=== PATIENT | male | born 2000 | race Caucasian/White ===

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

== ENCOUNTER 2019-02-05 13:44 | Emergency (ER) | payer MEDICAID ==
[~2019-02-05] VITALS: Ht 167.6 cm; Wt 49.9 kg
[2019-02-05 14:05] VITALS: BP 112/58
--- NOTE | 2019-02-05 14:08 | NUR ---
PT AMBULATED TO ED SHAUNNA
--- NOTE | 2019-02-05 14:45 | NUR ---
ASSESSMENT COMPLETED. PATIENT SITTING UP IN CHAIR, NO DITRESS.
--- NOTE | 2019-02-05 14:48 | NUR ---
PA AT BEDSIDE.
[2019-02-05] MEDS ORDERED: ACETAMINOPHEN EXTRA STRENGTH 500 MG TAB PO ONE (15:10)
[2019-02-05 15:24] VITALS: BP 112/58
== END 2019-02-05 15:25 | disposition home or self-care (01) ==
LOC: MED 13:44
DX: S90.122A Contusion of left lesser toe(s) without damage to nail, initial encounter (principal); J45.909 Unspecified asthma, uncomplicated; Z79.899 Other long term (current) drug therapy; Z88.1 Allergy status to other antibiotic agents; W22.8XXA Striking against or struck by other objects, initial encounter; Y93.89 Activity, other specified; Y92.89 Other specified places as the place of occurrence of the external cause; Y99.8 Other external cause status
CPT/HCPCS: 73660; 99283

== ENCOUNTER 2019-08-05 16:07 | Emergency (ER) | payer MEDICAID ==
[~2019-08-05] VITALS: Ht 165.1 cm; Wt 54.4 kg
[2019-08-05 16:19] VITALS: BP 123/63
[2019-08-05] MEDS ORDERED: NACL 0.9% 1,000 ML IV SCH (16:29)
[2019-08-05] MEDS ORDERED: FAMOTIDINE 20 MG/2 ML VIAL IVP ONE (16:30)
[2019-08-05] MEDS ORDERED: MORPHINE SULFATE 2 MG/ML SYR IVP ONE (16:30)
[2019-08-05] MEDS ORDERED: ONDANSETRON 4 MG/2 ML VIAL IVP ONE (16:30)
[2019-08-05 17:04] LABS: BASOPHILS # (AUTO) 0.1 K/uL (0.00-0.22); BASOPHILS % (AUTO) 0.6 % (0.0-2.0); EOSINOPHILS % (AUTO) 0.1 % (0.0-4.0); HEMATOCRIT 47.4 % (36-52); HEMOGLOBIN 15.7 g/dL (12.0-18.0); LYMPHOCYTES # (AUTO) 0.9 K/uL (2.0-11.5); LYMPHOCYTES % (AUTO) 8.3 % (20.5-51.1); MEAN CORPUSCULAR HEMOGLOBIN 30 pg (27-31); MEAN CORPUSCULAR HGB CONC 33 g/dL (33-37); MEAN CORPUSCULAR VOLUME 91.5 fL (80-94); MONOCYTES # (AUTO) 0.6 K/uL (0.8-1.0); MONOCYTES % (AUTO) 5.4 % (1.7-9.3); NEUTROPHILS # (AUTO) 9.8 K/uL (1.8-7.7); NEUTROPHILS % (AUTO) 85.6 % (42.2-75.2); PLATELET COUNT (AUTO) 344 K/uL (140-450); RED BLOOD CELL COUNT(AUTO) 5.18 MIL/uL (4.20-6.10); RED CELL DISTRIBUTION WIDTH 13.5 % (11.6-13.7); WHITE BLOOD COUNT (AUTO) 11.5 K/uL (4.5-11.0)
[2019-08-05 17:19] LABS: ALBUMIN 5.2 g/dL (3.4-5.0); ANION GAP 16.3 (8-16); CARBON DIOXIDE 27.3 mmol/L (21-32); CREATININE 0.9 mg/dL (0.6-1.3); POTASSIUM 3.6 mmol/L (3.5-5.1); TOTAL BILIRUBIN 1.9 mg/dL (0.0-1.0)
[2019-08-05 17:54] LABS: APPEARANCE,URINE CLEAR (CLEAR); BILIRUBIN,URINE 1+ (NEGATIVE); BLOOD, URINE NEGATIVE (NEGATIVE); LEUKOCYTE ESTERASE ,URINE NEGATIVE (NEGATIVE); NITRITE, URINE NEGATIVE (NEGATIVE); UGLUCOSE NEGATIVE (NEGATIVE)
[2019-08-05 17:56] LABS: COLOR,URINE AMBER (YELLOW)
[2019-08-05] MEDS ORDERED: ALUMINUM HYD/MAG/SIMETHICONE 30 ML UDC PO ONE (18:05)
[2019-08-05] MEDS ORDERED: LIDOCAINE VISCOUS 2% 20 ML UDC PO ONE (18:05)
[2019-08-05 18:35] VITALS: BP 103/67
== END 2019-08-05 18:35 | disposition home or self-care (01) ==
LOC: MED 16:07
DX: R10.32 Left lower quadrant pain (principal); R10.12 Left upper quadrant pain; R19.7 Diarrhea, unspecified; J45.909 Unspecified asthma, uncomplicated; F12.90 Cannabis use, unspecified, uncomplicated; Z79.899 Other long term (current) drug therapy; Z88.1 Allergy status to other antibiotic agents
CPT/HCPCS: 36415; 74176; 80053; 81003; 83605; 83690; 85025; 87040; 96361; 96374; 96375; 99284; J2270; J2405; J3490; J7030

== ENCOUNTER 2020-01-19 10:59 | Emergency (ER) | payer MEDICAID ==
[~2020-01-19] VITALS: Ht 165.1 cm; Wt 52.2 kg
[2020-01-19 11:12] VITALS: BP 104/63
--- NOTE | 2020-01-19 11:45 | NUR ---
PT PROVIDED URINE SAMPLE AT THIS TIME. SPECIMEN IN DIRTY UTILITY.
--- NOTE | 2020-01-19 12:35 | NUR ---
PATIENT AMBULATED TO BED 1.
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
[2020-01-19 14:37] VITALS: BP 104/63
--- NOTE | 2020-01-19 14:38 | NUR ---
Patient discharged with v/s stable. Written and verbal after care instructions given and explained. Patient verbalized understanding. Ambulatory with steady gait. All questions addressed prior to discharge. Advised to follow up with PMD.
== END 2020-01-19 14:38 | disposition home or self-care (01) ==
LOC: MED 10:59
DX: K29.70 Gastritis, unspecified, without bleeding (principal); J45.909 Unspecified asthma, uncomplicated; Z88.1 Allergy status to other antibiotic agents; Z79.899 Other long term (current) drug therapy
CPT/HCPCS: 74021; 99283

== ENCOUNTER 2020-01-21 10:55 | Emergency (ER) | payer MEDICAID ==
[~2020-01-21] VITALS: Ht 165.1 cm; Wt 52.2 kg
[2020-01-21 11:03] VITALS: BP 118/69
--- NOTE | 2020-01-21 11:09 | NUR ---
19 y/o male from home c/o LUQ abd pain with N/V/D x 9 months. Pt states he saw GI specialist in past and was informed to change diet. Abd soft, flat, nontender to palp. Pt guarding abd at this time. 10/10 constant sharp pain. Pt states he vomits after eating. Awake and alert. VSS medhx: denies
--- NOTE | 2020-01-21 12:12 | NUR ---
Dr Arias in tent examining patient
[2020-01-21] MEDS ORDERED: ALUMINUM HYD/MAG/SIMETHICONE 30 ML UDC ONE (12:18)
[2020-01-21] MEDS ORDERED: LIDOCAINE VISCOUS 2% 20 ML UDC ONE (12:18)
[2020-01-21] MEDS ORDERED: DICYCLOMINE HCL LIQUID 10 MG/5 ML UDC ONE (12:18)
[2020-01-21] MEDS ORDERED: DICYCLOMINE HCL LIQUID 20 MG, ALUMINUM HYD/MAG/SIMETHICONE 30 ML, LIDOCAINE VISCOUS 2% ... PO ONE ×3 (12:20)
[2020-01-21 13:10] LABS: ANION GAP 10.7 (8-16); CARBON DIOXIDE 29.6 mmol/L (21-32); CREATININE 0.7 mg/dL (0.6-1.3); POTASSIUM 4.3 mmol/L (3.5-5.1)
[2020-01-21 13:22] LABS: ALBUMIN 4.9 g/dL (3.4-5.0); TOTAL BILIRUBIN 1.2 mg/dL (0.0-1.0)
[2020-01-21 13:47] VITALS: BP 120/74
--- NOTE | 2020-01-21 13:47 | NUR ---
Patient discharged with v/s stable. Written and verbal after care instructions given and explained. Patient alert, oriented and verbalized understanding of instructions. Ambulatory with steady gait. All questions addressed prior to discharge. ID band removed. Patient advised to follow up with PMD. Rx of Mylanta 200mg and Omeprazole 20mg given. Patient educated on indication of medication including possible reaction and side effects. Opportunity to ask questions provided and answered.
== END 2020-01-21 13:47 | disposition home or self-care (01) ==
LOC: MED 10:55
DX: R10.12 Left upper quadrant pain (principal); J45.909 Unspecified asthma, uncomplicated; Z88.0 Allergy status to penicillin; Z79.899 Other long term (current) drug therapy
CPT/HCPCS: 36415; 80053; 83690; 99283

== ENCOUNTER 2020-01-23 17:13 | Emergency (ER) | payer MEDICAID ==
[~2020-01-23] VITALS: Ht 162.6 cm; Wt 48.5 kg
[2020-01-23 17:22] VITALS: BP 129/100
[2020-01-23] MEDS ORDERED: ALUMINUM HYD/MAG/SIMETHICONE 30 ML, DICYCLOMINE HCL LIQUID 20 MG, LIDOCAINE VISCOUS 2% ... PO ONE ×3 (17:30)
[2020-01-23] MEDS ORDERED: KETOROLAC 30 MG/ML VIAL IVP ONE (17:30)
[2020-01-23] MEDS ORDERED: LIDOCAINE VISCOUS 2% 20 ML UDC ONE (17:33)
[2020-01-23] MEDS ORDERED: ALUMINUM HYD/MAG/SIMETHICONE 30 ML UDC ONE (17:33)
[2020-01-23] MEDS ORDERED: DICYCLOMINE HCL LIQUID 10 MG/5 ML UDC ONE (17:33)
--- NOTE | 2020-01-23 17:33 | NUR ---
PATIENT AMBULATED TO ER BED 04
[2020-01-23] MEDS ORDERED: ONDANSETRON 4 MG/2 ML VIAL IVP ONE (17:40)
--- NOTE | 2020-01-23 17:40 | NUR ---
19 YO M BIB MOTHER WITH C/C LEFT UPPER QUADRANT ABDOMINAL PAIN WITH ASSOCIATED NAUSEA AND VOMITING. PT STATES SUDDEN ONSET OF ABDOMINAL PAIN BEGAN THIS MORNING AFTER WAKING UP 12/5 AT 0700. PT DESCRIBES ABDOMINAL PAIN A SHARP, BURNING CONSTANT PAIN, NON-RADIATING AND PROVOKED BY WAKING UP. PT STATES ABDOMINAL PAIN IS CHRONIC IN NATURE SINCE April,. PT SEEN GI SPECIALIST AND EGD COMPLETED. GI SPECIALIST ADVISED PT TO CHANGE DIET. PT STATES ABDOMINAL PAIN WILL COME AT RANDOM INTERVALS. BED LOCKED AT LOWEST POSITION. SIDE RAILS X1. CALL LIGHT IN REACH. HX: ASTHMA MEDS: UNKNOWN ALLERGIES: AMOXICILLIN
--- NOTE | 2020-01-23 17:54 | NUR ---
RAD/CT AT BEDSIDE. PT ASSISTED FROM BED TO WHEELCHAIR WITHOUT ISSUE. PT ASSISTED TO RAD.
[2020-01-23 17:57] LABS: BASOPHILS # (AUTO) 0.1 K/uL (0.00-0.22); BASOPHILS % (AUTO) 1.1 % (0.0-2.0); EOSINOPHILS % (AUTO) 0.1 % (0.0-4.0); HEMATOCRIT 41.6 % (36-52); HEMOGLOBIN 14.3 g/dL (12.0-18.0); LYMPHOCYTES # (AUTO) 1.4 K/uL (2.0-11.5); MEAN CORPUSCULAR HEMOGLOBIN 31 pg (27-31); MEAN CORPUSCULAR HGB CONC 35 g/dL (33-37); MEAN CORPUSCULAR VOLUME 89.6 fL (80-94); MONOCYTES # (AUTO) 0.5 K/uL (0.8-1.0); MONOCYTES % (AUTO) 5.9 % (1.7-9.3); NEUTROPHILS # (AUTO) 6.1 K/uL (1.8-7.7); NEUTROPHILS % (AUTO) 75.9 % (42.2-75.2); PLATELET COUNT (AUTO) 362 K/uL (140-450); RED BLOOD CELL COUNT(AUTO) 4.65 MIL/uL (4.20-6.10); RED CELL DISTRIBUTION WIDTH 13.2 % (11.6-13.7)
--- NOTE | 2020-01-23 18:05 | NUR ---
PT RETURNED FROM [facility] FROM WHEELCHAIR TO BEDSIDE. PT IN POSITION OF COMFORT, STATES 10/10 PAIN AND ASSOCIATED NAUSEA/VOMITING. PT PROVIDED WITH WATER REQUESTED.
[2020-01-23 18:07] LABS: ANION GAP 13.7 (8-16); CARBON DIOXIDE 27.5 mmol/L (21-32); CREATININE 0.9 mg/dL (0.6-1.3); POTASSIUM 3.2 mmol/L (3.5-5.1)
--- NOTE | 2020-01-23 18:12 | NUR ---
Note undone in EDM - 01/23/20 at 1830 by ANTOLIN 19 YO M BIB MOTHER WITH C/C LEFT UPPER QUADRANT ABDOMINAL PAIN WITH ASSOCIATED NAUSEA AND VOMITING. PT STATES SUDDEN ONSET OF ABDOMINAL PAIN BEGAN THIS MORNING AFTER WAKING UP 12/5 AT 0700. PT DESCRIBES ABDOMINAL PAIN A SHARP, BURNING CONSTANT PAIN, NON-RADIATING AND PROVOKED BY WAKING UP. PT STATES ABDOMINAL PAIN IS CHRONIC IN NATURE SINCE April,. PT SEEN GI SPECIALIST AND EGD COMPLETED. GI SPECIALIST ADVISED PT TO CHANGE DIET. PT STATES ABDOMINAL PAIN WILL COME AT RANDOM INTERVALS. BED LOCKED AT LOWEST POSITION. SIDE RAILS X1. CALL LIGHT IN REACH. HX: ASTHMA MEDS: UNKNOWN ALLERGIES: AMOXICILLIN
[2020-01-23 18:21] LABS: ALBUMIN 5.4 g/dL (3.4-5.0); TOTAL BILIRUBIN 0.9 mg/dL (0.0-1.0)
[2020-01-23] MEDS ORDERED: MORPHINE SULFATE 4 MG/ML SYR IVP ONE (18:30)
--- NOTE | 2020-01-23 18:35 | NUR ---
PT NOTIFIED MOTHER OF DISCHARGE. PT STATES MOTHER IS EN ROUTE TO ER MAIN LOBBY TO DRIVE PT HOME.
--- NOTE | 2020-01-23 18:48 | NUR ---
Patient discharged with v/s stable. Written and verbal after care instructions given and explained. Patient alert, oriented and verbalized understanding of instructions. Wheel Chair Assisted with to car. All questions addressed prior to discharge. ID band removed. Patient advised to follow up with PMD. Rx of Brandi Lemus given. Patient educated on indication of medication including possible reaction and side effects. Opportunity to ask questions provided and answered.
[2020-01-23 18:50] VITALS: BP 122/75
== END 2020-01-23 18:48 | disposition home or self-care (01) ==
LOC: MED 17:13
DX: R10.12 Left upper quadrant pain (principal); R11.2 Nausea with vomiting, unspecified; J45.909 Unspecified asthma, uncomplicated; Z88.1 Allergy status to other antibiotic agents; Z79.899 Other long term (current) drug therapy
CPT/HCPCS: 36415; 74176; 80053; 83690; 85025; 96374; 96375; 99284; J1885; J2270; J2405

== ENCOUNTER 2020-04-03 10:38 | Emergency (ER) | payer MEDICAID ==
[~2020-04-03] VITALS: Ht 157.5 cm; Wt 50.8 kg
[2020-04-03 10:41] VITALS: BP 126/83
--- NOTE | 2020-04-03 10:45 | NUR ---
AMBULATED TO BED 9
--- NOTE | 2020-04-03 11:03 | NUR ---
19 Y/O M C/O ABD PAIN THAT STARTED THIS MORNING. UPON PALPATION, TENDERNESS IN LLQ, LUQ, RLQ. BOWEL SOUNDS NORMOACTIVE IN ALL QUADRANTS X4. PT STATES PAIN IS 10/10 SHARP. TAKES RX AT HOME, LAST MED TOOK WAS NORCO FOR PAIN, NO RELIEF. PMH: ASTHMA. LAST BM WAS 04/03/20 AM, PT REPORTS HAVING DIARRHEA Q AM SINCE LAST YEAR. ALLERGY TO AMOXICILLIN. PT DENIES ANY DRINKING, BUT SMOKES MARIJUANA AT HOME. LAST TIME WAS 3 DAYS AGO AND REPORTS SMOKING EVERY 2-3 DAYS. PT STATES "I'VE THROWN UP LIKE 10 TIMES SINCE THIS MORNING." CURRENTLY FEELING NAUSEA AND VISIBLY DRY HEAVING. DENIES CONTACT WITH ANYONE COVID POSITIVE, DENIES SOB, COUGH, FEVER, AND CHEST PAIN.
[2020-04-03] MEDS ORDERED: NACL 0.9% 1,000 ML IV ONE (11:15)
[2020-04-03] MEDS ORDERED: HALOPERIDOL IM 5 MG/ML VIAL IVP ONE (11:15)
[2020-04-03 11:28] LABS: BASOPHILS % (AUTO) 0.2 % (0.0-2.0); EOSINOPHILS % (AUTO) 0.1 % (0.0-4.0); HEMATOCRIT 43.9 % (36-52); HEMOGLOBIN 14.8 g/dL (12.0-18.0); LYMPHOCYTES # (AUTO) 0.9 K/uL (2.0-11.5); MEAN CORPUSCULAR HEMOGLOBIN 31 pg (27-31); MEAN CORPUSCULAR HGB CONC 34 g/dL (33-37); MEAN CORPUSCULAR VOLUME 90.6 fL (80-94); MONOCYTES # (AUTO) 0.3 K/uL (0.8-1.0); MONOCYTES % (AUTO) 2.4 % (1.7-9.3); NEUTROPHILS # (AUTO) 10.7 K/uL (1.8-7.7); PLATELET COUNT (AUTO) 342 K/uL (140-450); RED BLOOD CELL COUNT(AUTO) 4.84 MIL/uL (4.20-6.10); RED CELL DISTRIBUTION WIDTH 13.4 % (11.6-13.7); WHITE BLOOD COUNT (AUTO) 11.9 K/uL (4.5-11.0)
--- NOTE | 2020-04-03 11:30 | NUR ---
PT MOTHER CALLED, ASKED PT IF I WAS ABLE TO RELEASE ANY INFORMATION, PT GAVE CONSENT. NOTIFIED MOTHER ABOUT CONDITION AND THAT WE ARE WAITING ON LABS AND MEDS WERE GIVEN FOR COMFORT.
[2020-04-03 11:46] LABS: ANION GAP 16.7 (8-16); CREATININE 0.9 mg/dL (0.6-1.3); POTASSIUM 3.7 mmol/L (3.5-5.1); TOTAL BILIRUBIN 1.3 mg/dL (0.0-1.0)
--- NOTE | 2020-04-03 12:10 | NUR ---
URINAL LEFT AT BEDSIDE, PT UNABLE TO GIVE URINE AT THIS TIME. PT IS STILL C.O PAIN.
[2020-04-03 12:18] LABS: LYMPHOCYTES % (AUTO) 7.2 % (20.5-51.1); NEUTROPHILS % (AUTO) 90.1 % (42.2-75.2)
[2020-04-03] MEDS ORDERED: LORazepam 2 MG/ML VIAL IVP ONE (12:25)
--- NOTE | 2020-04-03 12:38 | NUR ---
PT STATES "I WANT TO ", ASKED IF HE HAS ANY INTENTION OF HARMING SELF OR OTHERS, PT DENIES ANY SI.
--- NOTE | 2020-04-03 13:42 | NUR ---
MOTHER CALLED AGAIN, NOTIFIED THAT WE ARE WAITING FOR PT TO GIVE URINE FOR LABS. PT IS CURRENTLY SLEEPING. WILL CALL IF ANYTHING CHANGES.
--- NOTE | 2020-04-03 15:23 | NUR ---
VITALS UPDATED, PT STILL UNABLE TO GIVE URINE.
--- NOTE | 2020-04-03 16:28 | NUR ---
LET PT KNOW THAT MOTHER IS COMING TO PICK HIM UP AND TO PUT SHIRT BACK ON. PT FELL BACK TO SLEEP.
[2020-04-03 17:29] VITALS: BP 105/55
== END 2020-04-03 17:30 | disposition home or self-care (01) ==
LOC: MED 10:38
DX: G89.29 Other chronic pain (principal); R10.9 Unspecified abdominal pain; R19.7 Diarrhea, unspecified; J45.909 Unspecified asthma, uncomplicated; Z88.1 Allergy status to other antibiotic agents
CPT/HCPCS: 36415; 80053; 83690; 85025; 93005; 96361; 96374; 96375; 99284; J1630; J2060; J7030

== ENCOUNTER 2020-04-10 16:05 | Emergency (ER) | payer MEDICAID ==
[~2020-04-10] VITALS: Ht 165.1 cm; Wt 49.9 kg
[2020-04-10 16:10] VITALS: BP 131/75
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
[2020-04-10 16:38] LABS: BASOPHILS # (AUTO) 0.1 K/uL (0.00-0.22); BASOPHILS % (AUTO) 0.8 % (0.0-2.0); EOSINOPHILS % (AUTO) 0.2 % (0.0-4.0); HEMATOCRIT 42.7 % (36-52); HEMOGLOBIN 14.5 g/dL (12.0-18.0); LYMPHOCYTES # (AUTO) 1.4 K/uL (2.0-11.5); LYMPHOCYTES % (AUTO) 13.1 % (20.5-51.1); MEAN CORPUSCULAR HEMOGLOBIN 31 pg (27-31); MEAN CORPUSCULAR HGB CONC 34 g/dL (33-37); MEAN CORPUSCULAR VOLUME 90.9 fL (80-94); MONOCYTES # (AUTO) 0.8 K/uL (0.8-1.0); MONOCYTES % (AUTO) 7.4 % (1.7-9.3); NEUTROPHILS # (AUTO) 8.5 K/uL (1.8-7.7); NEUTROPHILS % (AUTO) 78.5 % (42.2-75.2); PLATELET COUNT (AUTO) 337 K/uL (140-450); RED CELL DISTRIBUTION WIDTH 13.5 % (11.6-13.7); WHITE BLOOD COUNT (AUTO) 10.8 K/uL (4.5-11.0)
[2020-04-10 16:59] LABS: PROTHROMBIN TIME 10.9 secs (10.8-13.4)
[2020-04-10 17:00] LABS: ALBUMIN 4.9 g/dL (3.4-5.0); ANION GAP 15.8 (8-16); CARBON DIOXIDE 24.9 mmol/L (21-32); CREATININE 0.9 mg/dL (0.6-1.3); POTASSIUM 3.7 mmol/L (3.5-5.1); TOTAL BILIRUBIN 0.8 mg/dL (0.0-1.0)
[2020-04-10] MEDS ORDERED: LORazepam 2 MG/ML VIAL IVP ONE (17:05)
[2020-04-10] MEDS ORDERED: NACL 0.9% 500 ML IV ONE (17:05)
[2020-04-10] MEDS ORDERED: methylPREDNISolone SS 125 MG/2 ML VIAL IVP ONE (17:20)
[2020-04-10 17:40] LABS: ACETAMINOPHEN < 0.5 ug/ml (10-30); SALICYLATE < 2.8 mg/dL (2.8-20.0)
[2020-04-10 17:41] LABS: FREE T4 (FREE THYROXINE) 1.26 ng/dL (0.76-1.46); THYROID STIMULATING HORMONE 0.53 uIU/mL (0.34-3.74)
--- NOTE | 2020-04-10 18:23 | NUR ---
C/O EYE PAIN X 30 MINS AGO , MOUTH PAIN, DIZZINESS X 10 MINS AGO. PMH: ASTHMA
[2020-04-10 18:45] VITALS: BP 131/75
--- NOTE | 2020-04-10 18:45 | NUR ---
Patient discharged with v/s stable. Written and verbal after care instructions given and explained. Patient alert, oriented and verbalized understanding of instructions. Ambulatory with steady gait. All questions addressed prior to discharge. ID band removed. Patient advised to follow up with PMD. Rx of prednisone 50mg daily, acyclovir 800mg 1 cap 5x/day PO given. Patient educated on indication of medication including possible reaction and side effects. Opportunity to ask questions provided and answered.
--- NOTE | 2020-04-11 22:50 | NUR ---
LATE ENTRY- Normal saline 0.9% IV fluids discontinued at 191
== END 2020-04-10 18:45 | disposition home or self-care (01) ==
LOC: MED 16:05
DX: G50.8 Other disorders of trigeminal nerve (principal); H53.9 Unspecified visual disturbance; R07.0 Pain in throat; J45.909 Unspecified asthma, uncomplicated; Z88.1 Allergy status to other antibiotic agents; F12.10 Cannabis abuse, uncomplicated; Z79.899 Other long term (current) drug therapy
CPT/HCPCS: 36415; 70450; 70486; 80053; 84439; 84443; 85025; 85610; 85730; 93005; 96361; 96374; 96375; 99285; G0480; G0482; J2060; J2930; J7030

== ENCOUNTER 2020-05-11 10:53 | Emergency (ER) | payer MEDICAID ==
[~2020-05-11] VITALS: Ht 165.1 cm; Wt 49.9 kg
[2020-05-11 10:55] VITALS: BP 132/82
[2020-05-11] MEDS ORDERED: MORPHINE SULFATE 4 MG/ML SYR IVP ONE ×2 (11:15→13:25)
[2020-05-11] MEDS ORDERED: ONDANSETRON 4 MG/2 ML VIAL IVP ONE (11:15)
[2020-05-11] MEDS ORDERED: NACL 0.9% 1,000 ML IV ONE (11:15)
[2020-05-11 11:28] LABS: BASOPHILS # (AUTO) 0.1 K/uL (0.00-0.22); BASOPHILS % (AUTO) 0.8 % (0.0-2.0); EOSINOPHILS % (AUTO) 0.2 % (0.0-4.0); HEMATOCRIT 41.3 % (36-52); LYMPHOCYTES # (AUTO) 0.7 K/uL (2.0-11.5); LYMPHOCYTES % (AUTO) 5.6 % (20.5-51.1); MEAN CORPUSCULAR HEMOGLOBIN 31 pg (27-31); MEAN CORPUSCULAR HGB CONC 34 g/dL (33-37); MEAN CORPUSCULAR VOLUME 92.1 fL (80-94); MONOCYTES # (AUTO) 0.3 K/uL (0.8-1.0); MONOCYTES % (AUTO) 2.5 % (1.7-9.3); NEUTROPHILS % (AUTO) 90.9 % (42.2-75.2); PLATELET COUNT (AUTO) 306 K/uL (140-450); RED BLOOD CELL COUNT(AUTO) 4.48 MIL/uL (4.20-6.10); RED CELL DISTRIBUTION WIDTH 13.5 % (11.6-13.7); WHITE BLOOD COUNT (AUTO) 12.1 K/uL (4.5-11.0)
[2020-05-11 11:41] LABS: ANION GAP 15.8 (8-16); CARBON DIOXIDE 26.9 mmol/L (21-32); CREATININE 0.8 mg/dL (0.6-1.3); POTASSIUM 3.7 mmol/L (3.5-5.1); TOTAL BILIRUBIN 0.5 mg/dL (0.0-1.0)
[2020-05-11 14:59] VITALS: BP 105/57
== END 2020-05-11 15:00 | disposition home or self-care (01) ==
LOC: MED 10:53
DX: R10.9 Unspecified abdominal pain (principal); G89.29 Other chronic pain; R11.10 Vomiting, unspecified; J45.909 Unspecified asthma, uncomplicated; Z79.899 Other long term (current) drug therapy; Z88.1 Allergy status to other antibiotic agents; Z88.8 Allergy status to other drugs, medicaments and biological substances
CPT/HCPCS: 36415; 71045; 80053; 85025; 96361; 96374; 96375; 96376; 99284; J2270; J2405

== ENCOUNTER 2020-06-26 02:32 | Emergency (ER) | payer MEDICAID ==
[~2020-06-26] VITALS: Ht 165.1 cm; Wt 47.6 kg
--- NOTE | 2020-06-26 02:39 | NUR ---
biba to bed 04
[2020-06-26 02:40] VITALS: BP 109/61
--- NOTE | 2020-06-26 02:45 | NUR ---
JAVI CROOK, 20, MALE, PRESENTING W/ ABDOMINAL PAIN, 8/10, SHARP, THAT RADIATES TO WHOLE BODY PER PT. STATES THAT HE DID NOT TAKE ANY MEDS. ALSO C/O HEADACHE, NO TRAVEL HX, SAFETY MEASURES IN PLACE, V/S TAKEN, WNL, WAITING TO BE SEEN BY KEPT TRENT. PAST MED HX ASTHMA. ALLEGIC TO AMOXICILLIN, BENADRYL.
--- NOTE | 2020-06-26 03:22 | NUR ---
PT IS ASLEEP, RESPIRATION EVEN AND UNLABORED, WILL CONTINUE TO MONITOR.
[2020-06-26] MEDS ORDERED: KETOROLAC 30 MG/ML VIAL IVP ONE (03:55)
[2020-06-26] MEDS ORDERED: NACL 0.9% 1,000 ML IV ONE (03:55)
[2020-06-26] MEDS ORDERED: ONDANSETRON 4 MG/2 ML VIAL IVP ONE (03:55)
--- NOTE | 2020-06-26 04:33 | NUR ---
DUE MEDS GIVEN ORDERED, TOLERATED WELL, WILL CONTINUE TO MONITOR.
[2020-06-26] MEDS ORDERED: ACET-9525 PO (04:49)
[2020-06-26] MEDS ORDERED: CEPH-588 PO (04:49)
[2020-06-26 05:18] LABS: HEMOGLOBIN 13.8 g/dL (12.0-18.0); MEAN CORPUSCULAR HEMOGLOBIN 32 pg (27-31); MEAN CORPUSCULAR HGB CONC 35 g/dL (33-37); PLATELET COUNT (AUTO) 287 K/uL (140-450); RED BLOOD CELL COUNT(AUTO) 4.35 MIL/uL (4.20-6.10); RED CELL DISTRIBUTION WIDTH 13.1 % (11.6-13.7); WHITE BLOOD COUNT (AUTO) 15.6 K/uL (4.8-10.8)
[2020-06-26 05:22] LABS: ALBUMIN 3.9 g/dL (3.4-5.0); ANION GAP 11.8 (8-16); CARBON DIOXIDE 28.3 mmol/L (21-32); CREATININE 0.8 mg/dL (0.6-1.3); POTASSIUM 4.1 mmol/L (3.5-5.1); TOTAL BILIRUBIN 1.1 mg/dL (0.0-1.0)
[2020-06-26 05:34] LABS: BASOPHILS % (MANUAL) 0 % (0-2); EOSINOPHILS % (MANUAL) 1 % (0-4); LYMPHOCYTES % (MANUAL) 4 % (20-46); MONOCYTES % (MANUAL) 3 % (5-12)
[2020-06-26 06:30] VITALS: BP 91/47
[2020-06-26 11:38] LABS: APPEARANCE,URINE CLEAR (CLEAR); BILIRUBIN,URINE NEGATIVE (NEGATIVE); BLOOD, URINE NEGATIVE (NEGATIVE); COLOR,URINE YELLOW (YELLOW); LEUKOCYTE ESTERASE ,URINE NEGATIVE (NEGATIVE); NITRITE, URINE NEGATIVE (NEGATIVE); UGLUCOSE NEGATIVE (NEGATIVE)
== END 2020-06-26 06:30 | disposition home or self-care (01) ==
LOC: MED 02:32
DX: R10.12 Left upper quadrant pain (principal); J45.909 Unspecified asthma, uncomplicated; Z79.899 Other long term (current) drug therapy; Z88.1 Allergy status to other antibiotic agents; Z88.8 Allergy status to other drugs, medicaments and biological substances
CPT/HCPCS: 36415; 74018; 80053; 81003; 85025; 87426; 87804; 96361; 96374; 96375; 99284; J1885; J2405; J7030

== ENCOUNTER 2020-07-06 10:56 | Emergency (ER) | payer MEDICAID ==
[~2020-07-06] VITALS: Ht 165.1 cm; Wt 47.6 kg
[2020-07-06 11:05] VITALS: BP 94/63
--- NOTE | 2020-07-06 11:10 | NUR ---
Patient wheelchair assisted to bed 1.
[2020-07-06] MEDS ORDERED: KETOROLAC 60 MG/2 ML VIAL IM ONE (11:15)
[2020-07-06] MEDS ORDERED: ONDANSETRON 4 MG ODT PO ONE (11:15)
--- NOTE | 2020-07-06 11:15 | NUR ---
Dr. Carney at the bedside evaluating patient
--- NOTE | 2020-07-06 11:27 | NUR ---
20 Y/M PRESENTS TO ED FOR CHRONIC ABD PAIN 11/27, C N/V/D. PMH-ASTHMA RX- DENIES NKDA
--- NOTE | 2020-07-06 11:56 | NUR ---
Patient resting comfortably in bed, respirations even and unlabored. Bed locked in the lowest position, side rail up x1 and call light within reach.
--- NOTE | 2020-07-06 12:49 | NUR ---
Dr. Ogden at bedside evaluating patient.
[2020-07-06] MEDS ORDERED: IBUP-2213 PO (13:02)
[2020-07-06] MEDS ORDERED: ACET-8386 PO (13:02)
[2020-07-06] MEDS ORDERED: ONDA8TAB87 PO (13:02)
[2020-07-06 13:40] VITALS: BP 123/74
--- NOTE | 2020-07-06 13:40 | NUR ---
Patient discharged with v/s stable. Written and verbal after care instructions given and explained. Patient alert, oriented and verbalized understanding of instructions. Ambulatory with steady gait. All questions addressed prior to discharge. ID band removed. Patient advised to follow up with PMD. Rx of ibuprofen, hydrocodone/acetaminophen, ondansetron given. Patient educated on indication of medication including possible reaction and side effects. Opportunity to ask questions provided and answered.
== END 2020-07-06 13:40 | disposition home or self-care (01) ==
LOC: MED 10:56
DX: R10.12 Left upper quadrant pain (principal); R11.2 Nausea with vomiting, unspecified; R19.7 Diarrhea, unspecified; J45.909 Unspecified asthma, uncomplicated; F12.90 Cannabis use, unspecified, uncomplicated; Z88.1 Allergy status to other antibiotic agents; Z88.8 Allergy status to other drugs, medicaments and biological substances; Z79.899 Other long term (current) drug therapy
CPT/HCPCS: 96372; 99283; J1885; Q0162

== ENCOUNTER 2020-12-26 06:10 | Emergency (ER) | payer MEDICAID ==
[~2020-12-26] VITALS: Ht 165.1 cm; Wt 51.7 kg
[~2020-12-26 06:10] MED LIST changes: +ACET-8386 PO; +IBUP-2213 PO; +ONDA8TAB87 PO
[2020-12-26 06:14] VITALS: BP 150/88
--- NOTE | 2020-12-26 06:14 | NUR ---
PT AMBULATED TO ER BED 08 UNASSISTED
--- NOTE | 2020-12-26 06:15 | NUR ---
20 YO M BIB SELF WITH C/C OF VOMITING X2DAYS. PT REPORTS SHARP STABBING 10/10 LEFT SIDED ABD PAIN THAT COMES AND GOES. DENIES TAKING MEDICATION FOR PAIN. +BLOOD IN EMESIS. +CHILLS. -SOB, FEVER, DIARRHEA, AND CHEST PAIN. PT IS CRYING AND YELLING FOR MOTHER. UNABLE TO SIT STILL. PT PLACED ON MONITOR AND GIVEN WARM BLANKET. BED LOCKED IN LOWEST POSITION, SIDE RAILS X2. HX:ASTHMA DENIES RX ALLERG:AMOXICILLIN AND BENADRYL
--- NOTE | 2020-12-26 06:20 | NUR ---
ERMD AT BEDSIDE EXAMINING PT.
[2020-12-26] MEDS ORDERED: LORazepam 2 MG/ML VIAL IVP ONE (06:25)
[2020-12-26] MEDS ORDERED: KETOROLAC 15 MG/ML VIAL IVP ONE ×2 (06:25→10:15)
[2020-12-26] MEDS ORDERED: ONDANSETRON 4 MG/2 ML VIAL IVP ONE (06:25)
--- NOTE | 2020-12-26 06:25 | NUR ---
LABS COLLECTED AND GIVEN TO [facility].
[2020-12-26] MEDS ORDERED: MORPHINE SULFATE 4 MG/ML SYR IVP ONE (06:35)
[2020-12-26] MEDS ORDERED: MORPHINE SULFATE 4 MG/ML SYR ONE (06:37)
[2020-12-26 06:44] LABS: BASOPHILS # (AUTO) 0.1 K/uL (0.00-0.22); BASOPHILS % (AUTO) 0.4 % (0.0-2.0); EOSINOPHILS # (AUTO) 0.2 K/uL (0-0.4); HEMATOCRIT 43.3 % (36-52); HEMOGLOBIN 14.8 g/dL (12.0-18.0); LYMPHOCYTES # (AUTO) 1.8 K/uL (2.0-11.5); LYMPHOCYTES % (AUTO) 10.3 % (20.5-51.1); MEAN CORPUSCULAR HEMOGLOBIN 31 pg (27-31); MEAN CORPUSCULAR HGB CONC 34 g/dL (33-37); MEAN CORPUSCULAR VOLUME 90.8 fL (80-94); MONOCYTES # (AUTO) 0.8 K/uL (0.8-1.0); MONOCYTES % (AUTO) 4.5 % (1.7-9.3); NEUTROPHILS # (AUTO) 14.3 K/uL (1.8-7.7); NEUTROPHILS % (AUTO) 83.8 % (42.2-75.2); PLATELET COUNT (AUTO) 473 K/uL (140-450); RED BLOOD CELL COUNT(AUTO) 4.77 MIL/uL (4.20-6.10); RED CELL DISTRIBUTION WIDTH 13.7 % (11.6-13.7); WHITE BLOOD COUNT (AUTO) 17.1 K/uL (4.8-10.8)
[2020-12-26 06:58] LABS: ALBUMIN 4.6 g/dL (3.4-5.0); ANION GAP 6.1 (8-16); POTASSIUM 3.1 mmol/L (3.5-5.1); TOTAL BILIRUBIN 0.6 mg/dL (0.0-1.0)
[2020-12-26] MEDS ORDERED: ONDA-188 SL (07:12)
[2020-12-26] MEDS ORDERED: HYDR-5191 PO (07:12)
[2020-12-26] MEDS ORDERED: SERT50TA PO (07:12)
--- NOTE | 2020-12-26 07:19 | NUR ---
REPORT GIVEN TO DUSTY VELAZQUEZ. TRANSFER OF CARE AT THIS TIME.
--- NOTE | 2020-12-26 09:24 | NUR ---
CT AT BEDSIDE TO TAKE PT TO RADIOLOGY.
--- NOTE | 2020-12-26 09:37 | NUR ---
PT RETURNED FROM CT ON [facility].
[2020-12-26] MEDS ORDERED: HALOPERIDOL IM 5 MG/ML VIAL IVP ONE (10:05)
[2020-12-26] MEDS ORDERED: MORPHINE SULFATE 2 MG/ML SYR IVP ONE (10:15)
--- NOTE | 2020-12-26 10:35 | NUR ---
IVP MEDS GIVEN-NADR AT THIS TIME
[2020-12-26 10:57] LABS: APPEARANCE,URINE CLEAR (CLEAR); BILIRUBIN,URINE NEGATIVE (NEGATIVE); BLOOD, URINE NEGATIVE (NEGATIVE); COLOR,URINE YELLOW (YELLOW); LEUKOCYTE ESTERASE ,URINE NEGATIVE (NEGATIVE); NITRITE, URINE NEGATIVE (NEGATIVE); PH,URINE 7.5 (5.0-9.0); UGLUCOSE NEGATIVE (NEGATIVE)
[2020-12-26 11:01] LABS: RBC,URINE 0-5 /HPF (0-5); WBC,URINE 0-5 /HPF (0-5)
[2020-12-26 11:09] LABS: BARBITURATE, URINE NEGATIVE ng/ml (NEG <=200); BENZODIAZEPINE, URINE NEGATIVE ng/mL (NEG <=200); CANNABINOID, URINE POSITIVE ng/mL (NEG <=50); COCAINE, URINE NEGATIVE ng/mL (NEG <=300); OPIATE, URINE POSITIVE ng/mL (NEG <=2000); PHENCYCLIDINE SCREEN,URINE NEGATIVE ng/mL (NEG <=25)
[2020-12-26 12:10] VITALS: BP 106/71
--- NOTE | 2020-12-26 12:10 | NUR ---
Patient discharged with v/s stable. Written and verbal after care instructions given and explained with teachback . Patient alert, oriented and verbalized understanding of instructions. Ambulatory with steady gait. All questions addressed prior to discharge. ID band removed. Patient advised to follow up with PMD. Rx of NORCO/ZOFRAN/ZOLOFT given. Patient educated on indication of medication including possible reaction and side effects. Opportunity to ask questions provided and answered.
== END 2020-12-26 12:10 | disposition home or self-care (01) ==
LOC: MED 06:10
DX: R10.9 Unspecified abdominal pain (principal); G89.29 Other chronic pain; F41.9 Anxiety disorder, unspecified; R11.15 Cyclical vomiting syndrome unrelated to migraine; E86.0 Dehydration; J45.909 Unspecified asthma, uncomplicated; Z79.899 Other long term (current) drug therapy; Z79.1 Long term (current) use of non-steroidal anti-inflammatories (NSAID); Z79.891 Long term (current) use of opiate analgesic; Z79.51 Long term (current) use of inhaled steroids; Z88.0 Allergy status to penicillin; Z88.8 Allergy status to other drugs, medicaments and biological substances
CPT/HCPCS: 36415; 74177; 80053; 80305; 81001; 83690; 85025; 96374; 96375; 96376; 99285; J1630; J1885; J2270; J2405; Q9967

== ENCOUNTER 2020-12-29 07:37 | Emergency (ER) | payer MEDICAID ==
[~2020-12-29] VITALS: Ht 165.1 cm; Wt 49.9 kg
[~2020-12-29 07:37] MED LIST changes: +HYDR-5191 PO; +ONDA-188 SL; +SERT50TA PO
--- NOTE | 2020-12-29 07:37 | NUR ---
PT BIBA TAKEN TO ER BED 2.
[2020-12-29 07:43] VITALS: BP 114/60
--- NOTE | 2020-12-29 08:02 | NUR ---
20 Y/O MALE BIBA FROM WORK C/O ABDOMINAL PAIN 11/27 RADIATING TO LUQ WITH N/V/D X 3 HOURS. PT SEEN HERE FOR SAME S/S 12/26/20. DENIES FEVR/CHILLS. PMH: CHRONIC ABDOMINAL PAIN, CYCLIC VOMITING, ANXIETY, ASTHMA ALLERGIES: AMOXICILLIN, BENADRYL
--- NOTE | 2020-12-29 08:05 | NUR ---
DR. LANGE AT PT BEDSIDE FOR FURTHER EVALUATION.
[2020-12-29] MEDS ORDERED: NACL 0.9% 1,000 ML IV ONE (08:10)
[2020-12-29] MEDS ORDERED: HALOPERIDOL IM 5 MG/ML VIAL IM ONE (08:10)
--- NOTE | 2020-12-29 08:11 | NUR ---
IV ESTABLISHED TO RIGHT FA 20G, GOOD BLOOD RETURN, COLLECTED LABS GAVE TO GABINO GUY TECH AT PT BEDSIDE.
[2020-12-29 08:26] LABS: BASOPHILS # (AUTO) 0.1 K/uL (0.00-0.22); BASOPHILS % (AUTO) 0.4 % (0.0-2.0); EOSINOPHILS # (AUTO) 0.1 K/uL (0-0.4); EOSINOPHILS % (AUTO) 0.4 % (0.0-4.0); HEMATOCRIT 42.3 % (36-52); HEMOGLOBIN 14.3 g/dL (12.0-18.0); LYMPHOCYTES # (AUTO) 0.8 K/uL (2.0-11.5); LYMPHOCYTES % (AUTO) 5.9 % (20.5-51.1); MEAN CORPUSCULAR HEMOGLOBIN 31 pg (27-31); MEAN CORPUSCULAR HGB CONC 34 g/dL (33-37); MEAN CORPUSCULAR VOLUME 90.7 fL (80-94); MONOCYTES # (AUTO) 0.5 K/uL (0.8-1.0); MONOCYTES % (AUTO) 3.8 % (1.7-9.3); NEUTROPHILS # (AUTO) 12.7 K/uL (1.8-7.7); NEUTROPHILS % (AUTO) 89.5 % (42.2-75.2); PLATELET COUNT (AUTO) 416 K/uL (140-450); RED BLOOD CELL COUNT(AUTO) 4.66 MIL/uL (4.20-6.10); RED CELL DISTRIBUTION WIDTH 13.7 % (11.6-13.7); WHITE BLOOD COUNT (AUTO) 14.2 K/uL (4.8-10.8)
[2020-12-29 08:39] LABS: ALBUMIN 4.4 g/dL (3.4-5.0); ANION GAP 13.5 (8-16); CARBON DIOXIDE 26.4 mmol/L (21-32); POTASSIUM 3.9 mmol/L (3.5-5.1); TOTAL BILIRUBIN 0.4 mg/dL (0.0-1.0)
--- NOTE | 2020-12-29 08:53 | NUR ---
PT SLEEPING, VISIBLE EQUAL RISE AND FALL OF CHEST, VSS, WILL CONTINUE TO MONITOR.
--- NOTE | 2020-12-29 09:27 | NUR ---
PT AMBULATED TO RESTROOM WITH A STEADY GAIT.
--- NOTE | 2020-12-29 09:31 | NUR ---
PT AMBULATED TO ER BED 2 WITH A STEADY GAIT.
[2020-12-29] MEDS ORDERED: ONDA-188 PO (09:38)
[2020-12-29] MEDS ORDERED: FAMO-92 PO (09:38)
--- NOTE | 2020-12-29 09:40 | NUR ---
DR. LANGE AT PT BEDSIDE FOR REEVALUATION.
[2020-12-29 09:59] VITALS: BP 117/69
--- NOTE | 2020-12-29 09:59 | NUR ---
Patient discharged with v/s stable. Written and verbal after care instructions given and explained. Patient alert, oriented and verbalized understanding of instructions. Ambulatory with steady gait. All questions addressed prior to discharge. ID band removed. Patient advised to follow up with PMD. Rx of PEPCID AND ZOFRAN given. Patient educated on indication of medication including possible reaction and side effects. Opportunity to ask questions provided and answered.
== END 2020-12-29 09:59 | disposition home or self-care (01) ==
LOC: MED 07:37
DX: R11.2 Nausea with vomiting, unspecified (principal); J45.909 Unspecified asthma, uncomplicated; F12.90 Cannabis use, unspecified, uncomplicated; Z79.899 Other long term (current) drug therapy; Z88.1 Allergy status to other antibiotic agents; Z88.8 Allergy status to other drugs, medicaments and biological substances
CPT/HCPCS: 36415; 80053; 83690; 85025; 96360; 96372; 99283; J1630; J7030

== ENCOUNTER 2021-01-24 11:52 | Emergency (ER) | payer MEDICAID ==
[~2021-01-24] VITALS: Ht 165.1 cm; Wt 45.4 kg
[~2021-01-24 11:52] MED LIST changes: +FAMO-92 PO; +ONDA-188 PO
--- NOTE | 2021-01-24 11:52 | NUR ---
BIBA BLS TO ER BED 8
[2021-01-24 11:55] VITALS: BP 126/92
[2021-01-24] MEDS ORDERED: ONDANSETRON 4 MG/2 ML VIAL IVP ONE (12:05)
[2021-01-24] MEDS ORDERED: HALOPERIDOL 5 MG TAB PO ONE (12:05)
[2021-01-24] MEDS ORDERED: NACL 0.9% 1,000 ML IV SCH (12:05)
[2021-01-24 12:44] LABS: BASOPHILS % (AUTO) 0.2 % (0.0-2.0); EOSINOPHILS % (AUTO) 0.2 % (0.0-4.0); HEMATOCRIT 41.5 % (36-52); HEMOGLOBIN 14.2 g/dL (12.0-18.0); LYMPHOCYTES # (AUTO) 0.3 K/uL (2.0-11.5); LYMPHOCYTES % (AUTO) 1.7 % (20.5-51.1); MEAN CORPUSCULAR HEMOGLOBIN 31 pg (27-31); MEAN CORPUSCULAR HGB CONC 34 g/dL (33-37); MEAN CORPUSCULAR VOLUME 90.2 fL (80-94); MONOCYTES # (AUTO) 0.5 K/uL (0.8-1.0); MONOCYTES % (AUTO) 2.7 % (1.7-9.3); NEUTROPHILS % (AUTO) 95.2 % (42.2-75.2); PLATELET COUNT (AUTO) 364 K/uL (140-450); RED CELL DISTRIBUTION WIDTH 13.5 % (11.6-13.7); WHITE BLOOD COUNT (AUTO) 19.9 K/uL (4.8-10.8)
--- NOTE | 2021-01-24 13:00 | NUR ---
PATIENT UNABLE TO PROVIDE URINE SAMPLE AT THIS TIME.
[2021-01-24 13:15] LABS: ALBUMIN 4.9 g/dL (3.4-5.0); ANION GAP 16.4 (8-16); CARBON DIOXIDE 24.4 mmol/L (21-32); CREATININE 0.9 mg/dL (0.6-1.3); POTASSIUM 3.8 mmol/L (3.5-5.1); TOTAL BILIRUBIN 1.1 mg/dL (0.0-1.0)
--- NOTE | 2021-01-24 13:35 | NUR ---
20 Y/O M BIBA C/O APPER ABD AND UMBELICAL PAIN 11/27. N/V SINCE THIA MORNING. PT REPORTED HAVING THIS PROBLEM FOR 2 YEARS NOW. HE DID SEE A GI SPECIALIST WITH NORMAL RESULTS. PT HAS A HX OF MARIJUANA SMOKING AND DID SMOKE 2 DAYS AGO. PMH: ANXIETY, ASTHMA ALLERGIES: AMOXICILLIN, BENADRYL
[2021-01-24] MEDS ORDERED: ONDANSETRON 4 MG/2 ML VIAL ONE (14:11)
[2021-01-24 14:13] VITALS: BP 134/72
[2021-01-24 14:23] LABS: APPEARANCE,URINE CLEAR (CLEAR); BILIRUBIN,URINE NEGATIVE (NEGATIVE); BLOOD, URINE NEGATIVE (NEGATIVE); COLOR,URINE YELLOW (YELLOW); LEUKOCYTE ESTERASE ,URINE NEGATIVE (NEGATIVE); NITRITE, URINE NEGATIVE (NEGATIVE); PH,URINE 8.5 (5.0-9.0); UGLUCOSE 1+ (NEGATIVE)
--- NOTE | 2021-01-24 15:18 | NUR ---
DR JENKINS AT BEDSIDE EVALUATING PT
[2021-01-24] MEDS ORDERED: KETOROLAC 30 MG/ML VIAL IVP ONE (15:20)
[2021-01-24] MEDS ORDERED: IBUP-2213 PO (15:32)
[2021-01-24] MEDS ORDERED: PROM25TA27 PO (15:32)
--- NOTE | 2021-01-24 16:18 | NUR ---
Patient discharged with v/s stable. Written and verbal after care instructions given and explained. Patient alert, oriented and verbalized understanding of instructions. Ambulatory with steady gait. All questions addressed prior to discharge. ID band removed. Patient advised to follow up with PMD. Rx of IBUPROFEN, PROMETHAZINE HCI given. Opportunity to ask questions provided and answered.
--- NOTE | 2021-01-24 16:19 | NUR ---
The patient's care was reviewed and supervised by Sandra Dubois RN.
== END 2021-01-24 16:17 | disposition home or self-care (01) ==
LOC: MED 11:52
DX: R11.15 Cyclical vomiting syndrome unrelated to migraine (principal); R10.84 Generalized abdominal pain; J45.909 Unspecified asthma, uncomplicated; Z79.1 Long term (current) use of non-steroidal anti-inflammatories (NSAID); Z79.891 Long term (current) use of opiate analgesic; Z79.899 Other long term (current) drug therapy; Z79.51 Long term (current) use of inhaled steroids; Z88.0 Allergy status to penicillin; Z88.8 Allergy status to other drugs, medicaments and biological substances
CPT/HCPCS: 36415; 80053; 81003; 83690; 85025; 96361; 96374; 96375; 99284; J1630; J1885; J2405; J7030

== ENCOUNTER 2021-06-24 11:41 | Emergency (ER) | payer MEDICAID ==
[~2021-06-24] VITALS: Ht 165.1 cm; Wt 52.6 kg
[~2021-06-24 11:41] MED LIST changes: +PROM25TA27 PO
[2021-06-24 11:44] VITALS: BP 143/73
--- NOTE | 2021-06-24 11:49 | NUR ---
Pt ambulated to bed 10 with steady/even gait.
--- NOTE | 2021-06-24 11:49 | NUR ---
Mel henderson in [facility] - 06/24/21 at 1153 by ANTOLIN Pt ambulated to bed 06 with steady/even gait.
[2021-06-24] MEDS ORDERED: LORazepam 2 MG/ML VIAL ONE (11:59)
[2021-06-24] MEDS ORDERED: LORazepam 2 MG/ML VIAL IM ONE (12:00)
--- NOTE | 2021-06-24 12:10 | NUR ---
PT C/O ANXIETY AND PANIC ATTACK, PT PALE, HYPERTENVILATING, CRYING, "STATES PLEASE HELP ME, MY ANXIETY IS SO BAD". MEDICATED PER ORDER.
--- NOTE | 2021-06-24 12:31 | NUR ---
PT RESTING AND CALM AT THIS TIME STATES IMPROVEMENT FROM SYMPTOMS
[2021-06-24 15:08] VITALS: BP 112/70
--- NOTE | 2021-06-24 15:08 | NUR ---
PT TOLERATED PO INTAKE WITHOUT N/V
[2021-06-24] MEDS ORDERED: ONDA-188 PO (15:16)
--- NOTE | 2021-06-24 15:35 | NUR ---
The patient's care was reviewed and supervised by [facility], RN.
== END 2021-06-24 15:35 | disposition home or self-care (01) ==
LOC: MED 11:41
DX: F41.9 Anxiety disorder, unspecified (principal); R11.15 Cyclical vomiting syndrome unrelated to migraine; J45.909 Unspecified asthma, uncomplicated; F12.10 Cannabis abuse, uncomplicated; Z79.899 Other long term (current) drug therapy; Z79.1 Long term (current) use of non-steroidal anti-inflammatories (NSAID); Z79.891 Long term (current) use of opiate analgesic; Z88.0 Allergy status to penicillin; Z88.8 Allergy status to other drugs, medicaments and biological substances
CPT/HCPCS: 96372; 99283; J2060

== ENCOUNTER 2021-06-29 11:54 | Emergency (ER) | payer MEDICAID ==
[~2021-06-29] VITALS: Ht 165.1 cm; Wt 51.3 kg
[2021-06-29 11:59] VITALS: BP 138/84
--- NOTE | 2021-06-29 12:05 | NUR ---
PT AMBULATED TO BED 11
[2021-06-29] MEDS ORDERED: LORazepam 1 MG TAB PO ONE (12:25)
[2021-06-29] MEDS ORDERED: ONDANSETRON 4 MG ODT PO ONE (12:25)
--- NOTE | 2021-06-29 12:35 | NUR ---
GARCIA AT BEDSIDE ASSESSING PT.
--- NOTE | 2021-06-29 12:41 | NUR ---
21/M C/O ANXIETY SINCE THIS MORNING. STATES HX OF ANXIETY BUT STATES MEDICATION IS NOT HELPING HIM. DENIES DRUG OR ALCOHOL USE, DENIES TRIGGERING EVENTS. PT STATED TO ME HIS ANXIETY REALLY NEVER GOES AWAY AND HE JUST GOT TIRED OF IT AND DECIDIED TO COME INTO THE ER TODAY. NO COMPLAINTS OF PAIN AT THIS TIME. PT IS RESTING IN BED. PMH: ANXIETY ALLERGIES: AMOXICILLIN, BENADRYL
[2021-06-29] MEDS ORDERED: NACL 0.9% 1,000 ML IV ONE (13:15)
[2021-06-29] MEDS ORDERED: HALOPERIDOL IM 5 MG/ML VIAL IM ONE (13:25)
[2021-06-29] MEDS ORDERED: METOCLOPRAMIDE 10 MG/2 ML INJ VIAL IVP ONE (13:25)
[2021-06-29 13:41] LABS: BASOPHILS # (AUTO) 0.1 K/uL (0.00-0.22); BASOPHILS % (AUTO) 0.8 % (0.0-2.0); EOSINOPHILS % (AUTO) 0.1 % (0.0-4.0); HEMATOCRIT 45.4 % (36-52); HEMOGLOBIN 15.3 g/dL (12.0-18.0); LYMPHOCYTES # (AUTO) 0.5 K/uL (2.0-11.5); LYMPHOCYTES % (AUTO) 4.8 % (20.5-51.1); MEAN CORPUSCULAR HEMOGLOBIN 31 pg (27-31); MEAN CORPUSCULAR HGB CONC 34 g/dL (33-37); MEAN CORPUSCULAR VOLUME 92.5 fL (80-94); MONOCYTES # (AUTO) 0.3 K/uL (0.8-1.0); MONOCYTES % (AUTO) 2.4 % (1.7-9.3); NEUTROPHILS % (AUTO) 91.9 % (42.2-75.2); PLATELET COUNT (AUTO) 337 K/uL (140-450); RED BLOOD CELL COUNT(AUTO) 4.91 MIL/uL (4.20-6.10); RED CELL DISTRIBUTION WIDTH 13.6 % (11.6-13.7); WHITE BLOOD COUNT (AUTO) 10.9 K/uL (4.8-10.8)
[2021-06-29 13:50] LABS: ALBUMIN 5.3 g/dL (3.4-5.0); ANION GAP 12.1 (8-16); CREATININE 0.9 mg/dL (0.6-1.3); POTASSIUM 4.1 mmol/L (3.5-5.1); TOTAL BILIRUBIN 0.5 mg/dL (0.0-1.0)
[2021-06-29] MEDS ORDERED: LORazepam 2 MG/ML VIAL IVP ONE (14:05)
[2021-06-29 14:28] VITALS: BP 103/67
[2021-06-29] MEDS ORDERED: FAMO-90 PO (14:59)
[2021-06-29] MEDS ORDERED: ONDA-188 PO (14:59)
[2021-06-29] MEDS ORDERED: LORA-476 PO (14:59)
--- NOTE | 2021-06-29 15:00 | NUR ---
PT NOT ACTIVELY VOMITING AND VITAL SIGNS ARE STABLE.
--- NOTE | 2021-06-29 15:14 | NUR ---
Patient discharged with v/s stable. Written and verbal after care instructions given and explained. Patient alert, oriented and verbalized understanding of instructions. Ambulatory with steady gait. All questions addressed prior to discharge. ID band removed. Patient advised to follow up with PMD. Rx of PEPCID, ZOFRAN, AND ATIVAN given. Patient educated on indication of medication including possible reaction and side effects. Opportunity to ask questions provided and answered. PTS MOTHER CALLED TO PICK HIM UP.
== END 2021-06-29 15:14 | disposition home or self-care (01) ==
LOC: MED 11:54
DX: F41.9 Anxiety disorder, unspecified (principal); R11.10 Vomiting, unspecified; F12.90 Cannabis use, unspecified, uncomplicated; J45.909 Unspecified asthma, uncomplicated; Z88.1 Allergy status to other antibiotic agents; Z88.8 Allergy status to other drugs, medicaments and biological substances; Z79.899 Other long term (current) drug therapy
CPT/HCPCS: 36415; 80053; 83690; 85025; 96361; 96372; 96374; 99284; J1630; J2765; J7030; Q0162

== ENCOUNTER 2022-05-13 01:58 | Emergency (ER) | payer MEDICAID ==
[~2022-05-13] VITALS: Ht 165.1 cm; Wt 49.9 kg
[2022-05-13 01:58] VITALS: BP 144/77
[~2022-05-13 01:58] MED LIST changes: -ACET-8386 PO; +ACET-8905 PO; +FAMO-90 PO; +LORA-476 PO
--- NOTE | 2022-05-13 01:59 | NUR ---
JAVI OWENSS TO BED #9
--- NOTE | 2022-05-13 02:00 | NUR ---
BIBA FROM HOME WITH C/O RT FLANK PAIN ALL DAY WITH VOMITING OF BLOOD, DIARRHEA, CANT SLEEP
[2022-05-13] MEDS ORDERED: ONDANSETRON 4 MG/2 ML VIAL IVP ONE (02:15)
[2022-05-13] MEDS ORDERED: NACL 0.9% 1,000 ML IV ONE (02:15)
[2022-05-13] MEDS ORDERED: KETOROLAC 30 MG/ML VIAL IVP ONE (02:15)
[2022-05-13 03:30] LABS: BASOPHILS # (AUTO) 0.1 K/uL (0.00-0.22); BASOPHILS % (AUTO) 0.3 % (0.0-2.0); EOSINOPHILS % (AUTO) 0.2 % (0.0-4.0); HEMATOCRIT 38.2 % (36-52); HEMOGLOBIN 12.9 g/dL (12.0-18.0); LYMPHOCYTES # (AUTO) 0.7 K/uL (2.0-11.5); LYMPHOCYTES % (AUTO) 3.2 % (20.5-51.1); MEAN CORPUSCULAR HEMOGLOBIN 31 pg (27-31); MEAN CORPUSCULAR HGB CONC 34 g/dL (33-37); MEAN CORPUSCULAR VOLUME 90.7 fL (80-94); MONOCYTES # (AUTO) 0.5 K/uL (0.8-1.0); MONOCYTES % (AUTO) 2.3 % (1.7-9.3); NEUTROPHILS # (AUTO) 21.4 K/uL (1.8-7.7); PLATELET COUNT (AUTO) 333 K/uL (140-450); RED BLOOD CELL COUNT(AUTO) 4.22 MIL/uL (4.20-6.10); RED CELL DISTRIBUTION WIDTH 13.6 % (11.6-13.7); WHITE BLOOD COUNT (AUTO) 22.7 K/uL (4.8-10.8)
[2022-05-13 03:44] LABS: ALBUMIN 4.6 g/dL (3.4-5.0); CARBON DIOXIDE 26.8 mmol/L (21-32); CREATININE 1.1 mg/dL (0.6-1.3); POTASSIUM 3.8 mmol/L (3.5-5.1); TOTAL BILIRUBIN 0.9 mg/dL (0.0-1.0)
--- NOTE | 2022-05-13 04:13 | NUR ---
AMB TO BR FOR [facility]A. STEADY GAIT NOTED
[2022-05-13 04:28] LABS: APPEARANCE,URINE CLEAR (CLEAR); BILIRUBIN,URINE NEGATIVE (NEGATIVE); BLOOD, URINE TRACE-I (NEGATIVE); COLOR,URINE YELLOW (YELLOW); LEUKOCYTE ESTERASE ,URINE NEGATIVE (NEGATIVE); NITRITE, URINE NEGATIVE (NEGATIVE); UGLUCOSE NEGATIVE (NEGATIVE)
[2022-05-13 04:58] LABS: BARBITURATE, URINE NEGATIVE ng/ml (NEG <=200); BENZODIAZEPINE, URINE NEGATIVE ng/mL (NEG <=200); CANNABINOID, URINE POSITIVE ng/mL (NEG <=50); COCAINE, URINE NEGATIVE ng/mL (NEG <=300); OPIATE, URINE NEGATIVE ng/mL (NEG <=2000); PHENCYCLIDINE SCREEN,URINE NEGATIVE ng/mL (NEG <=25)
[2022-05-13 04:59] LABS: RBC,URINE 0-5 /HPF (0-5); WBC,URINE 0-5 /HPF (0-5)
[2022-05-13] MEDS ORDERED: ONDA-188 SL (05:29)
[2022-05-13 05:40] VITALS: BP 144/77
== END 2022-05-13 05:35 | disposition home or self-care (01) ==
LOC: MED 01:58
DX: R11.2 Nausea with vomiting, unspecified (principal); J45.909 Unspecified asthma, uncomplicated; Z79.899 Other long term (current) drug therapy; Z79.891 Long term (current) use of opiate analgesic; Z79.1 Long term (current) use of non-steroidal anti-inflammatories (NSAID); Z88.0 Allergy status to penicillin; Z88.8 Allergy status to other drugs, medicaments and biological substances
CPT/HCPCS: 36415; 74176; 80053; 80305; 81001; 83605; 85025; 87040; 96361; 96374; 96375; 99285; J1885; J2405; J7030